=== PATIENT | female | born 1975 | race Caucasian/White ===

== ENCOUNTER 2016-11-05 14:20 | Emergency (ER) | payer OTHER ==
[~2016-11-05] VITALS: Ht 152.4 cm; Wt 44.5 kg
[2016-11-05 16:01] VITALS: BP 110/64
== END 2016-11-05 16:02 | disposition home or self-care (01) ==
LOC: EMS 14:23
DX: N64.4 Mastodynia (principal)
CPT/HCPCS: 99282